=== PATIENT | female | born 1990 | race Hispanic/Latino ===

== ENCOUNTER 2017-03-17 02:10 | Emergency (ER) | payer OTHER ==
[2017-03-17 02:16] VITALS: BP 132/85; PULSE 63; RESP 18; TEMP 98.1; O2SAT 99
[2017-03-17] MEDS ORDERED: Amoxicillin-Clav 500-125 mg Tab PO ONE (02:34)
--- NOTE | 2017-03-17 02:34 | C.PDOC ---
History Of Present Illness A 26 y/o F complains of right ear pain since 1am this morning. She reports having cold symptoms including headache, earache and productive cough for over a week. Today ear pain constant. Denies fever Time Seen by Provider: 03/17/17 02:27 Chief Complaint (Nursing): ENT Problem History Per: Patient History/Exam Limitations: None Onset/Duration Of Symptoms: Hrs Current Symptoms Are (Timing): Still Present Symptoms Have Been: Continuous Severity: Mild Past Medical History Reviewed: Historical Data, Nursing Documentation, Vital Signs Vital Signs: Last Vital Signs Temp 98.1 F 03/17/17 02:15 Pulse 63 03/17/17 02:15 Resp 18 03/17/17 02:15 BP 132/85 03/17/17 02:15 Pulse Ox 99 03/17/17 03:11 - Medical History PMH: No Chronic Diseases Family History: States: Unknown Family Hx - Social History Hx Alcohol Use: No Hx Substance Use: No - Immunization History Hx Tetanus Toxoid Vaccination: No Hx Influenza Vaccination: No Hx Pneumococcal Vaccination: No Review Of Systems Except As Marked, All Systems Reviewed And Found Negative. Constitutional: Negative for: Fever, Chills ENT: Positive for: Ear Pain (Right ear pain,) Cardiovascular: Negative for: Palpitations Respiratory: Positive for: Cough. Negative for: Shortness of Breath Gastrointestinal: Negative for: Vomiting, Abdominal Pain, Diarrhea Genitourinary: Negative for: Dysuria Musculoskeletal: Negative for: Neck Pain, Back Pain Neurological: Positive for: Headache. Negative for: Weakness, Numbness, Dizziness Physical Exam - Physical Exam Appears: Non-toxic, No Acute Distress Skin: Warm, Dry Head: Atraumatic, Normacephalic Eye(s): bilateral: Normal Inspection, PERRL, EOMI Ear(s): Left: Normal, Right: TM Erythema (Right TM erythematous and bulging) Nose: Normal, No Flaring Oral Mucosa: Moist Throat: Normal, No Erythema, No Exudate, No Drooling, No Mass Neck: Normal ROM, Supple Chest: Symmetrical Cardiovascular: Rhythm Regular Respiratory: Normal Breath Sounds, No Rales, No Rhonchi, No Wheezing Extremity: Bilateral: Atraumatic, Normal Color And Temperature, Normal ROM Neurological/Psych: Oriented x3, Normal Speech ED Course And Treatment O2 Sat by Pulse Oximetry: 99 (RA) Pulse Ox Interpretation: Normal Medical Decision Making Medical Decision Making: Impression: Right ear pain, exam consistent with AOM Plan: Motrin, Amoxicillin Dispo: Patient remained afebrile in no acute distress. Rx given. Follow up instructions given. Disposition Counseled Patient/Family Regarding: Diagnosis, Need For Followup, Rx Given - Disposition Referrals: Non [facility] Provider, [Primary Care Provider] - Anson Garcia MD [Staff Provider] - Disposition: HOME/ ROUTINE Disposition Time: 02:32 Condition: STABLE Additional Instructions: Follow up with your primary medical doctor or clinic in 2-5 days for further evaluation. Take Tylenol or Motrin alternating every 4-6 hours for Fever 100.4F or higher. Take antibiotic twice daily and be sure to finish taking all of antibiotic. Return to the emergency department at any time if symptoms persist or worsen. Prescriptions: Amoxicillin [Amoxil 500 mg Cap] 500 mg PO BID #14 cap Instructions: Otitis Media (ED) - POA Present On Arrival: None - Clinical Impression Clinical Impression: Otitis media - Scribe Statement The provider has reviewed the documentation as recorded by the Scribe Giovani tyson All medical record entries made by the Nikosibhema were at my direction and personally dictated by me. I have reviewed the chart and agree that the record accurately reflects my personal performance of the history, physical exam, medical decision making, and the department course for this patient. I have also personally directed, reviewed, and agree with the discharge instructions and disposition.
== END 2017-03-17 02:49 | disposition home or self-care (01) ==
LOC: SUPCPDRO 02:10 → C.ER 02:10
DX: H66.91 Otitis media, unspecified, right ear (principal)